=== PATIENT | male | born 2000 | race Two or more races ===

== ENCOUNTER 2023-11-17 18:10 | Observation (INO) | payer OTHER ==
--- NOTE | 2023-11-17 18:28 | ED ---
General Adult HPI - General Chief complaint: Weakness Stated complaint: heat exhaustion Time Seen by Provider: 11/17/23 18:15 Source: patient, EMS, RN notes reviewed, old records reviewed Mode of arrival: EMS - History of Present Illness Initial comments: This is a 23-year-old male who presents to the emergency department stating that he thinks he overheated himself outside today. Patient states it was over 90 degrees and he was on the beach playing volleyball and he was not drinking any fluids he became extremely hot and lightheaded he went to the water but it did not seem to resolve he came back out he just got worse so he decided to call the ambulance. EMS gave him a ride in an air conditioned [place] he stated that did help but he does feel better now but he still feels a little bit weak. Patient Denies any chest pain difficulty breathing shortness of breath. Patient has any abdominal pain patient has nausea vomit diarrhea. Patient denies headache patient has numbness weakness. Patient has any other medical problems. - Related Data Home Medications Medication Instructions Recorded Confirmed Acetaminophen Tab [Tylenol Tab] 1,000 mg PO Q6HR PRN 11/17/23 11/17/23 Ibuprofen [Motrin Ib] 400 mg PO Q6H PRN 11/17/23 11/17/23 Allergies Allergy/AdvReac Type Severity Reaction Status Date / Time No Known Allergies Allergy Verified 11/17/23 20:03 Review of Systems ROS Statement: Those systems with pertinent positive or pertinent negative responses have been documented in the HPI. ROS Other: All systems not noted in ROS Statement are negative. Past Medical History Past Medical History: No Reported History History of Any Multi-Drug Resistant Organisms: None Reported Past Surgical History: No Surgical Hx Reported Past Psychological History: No Psychological Hx Reported Smoking Status: Never smoker Past Alcohol Use History: None Reported Past Drug Use History: None Reported General Exam - General Exam Comments Initial Comments: GENERAL: Patient is well-developed and well-nourished. Patient is nontoxic and well- hydrated and is in mild distress. ENT: Neck is soft and supple. No significant lymphadenopathy is noted. Oropharynx is clear. Moist mucous membranes. Neck has full range of motion without eliciting any pain. EYES: The sclera were anicteric and conjunctiva were pink and moist. Extraocular movements were intact and pupils were equal round and reactive to light. Eyelids were unremarkable. PULMONARY: Unlabored respirations. Good breath sounds bilaterally. No audible rales rhonchi or wheezing was noted. CARDIOVASCULAR: There is a regular rate and rhythm without any murmurs gallops or rubs. ABDOMEN: Soft and nontender with normal bowel sounds. No palpable organomegaly was noted. There is no palpable pulsatile mass. SKIN: Skin is clear with no lesions or rashes and otherwise unremarkable. NEUROLOGIC: Patient is alert and oriented x3. Cranial nerves II through XII are grossly intact. Motor and sensory are also intact. Normal speech, volume and content. Symmetrical smile. MUSCULOSKELETAL: Normal extremities with adequate strength and full range of motion. LYMPHATICS: No significant lymphadenopathy is noted PSYCHIATRIC: Normal psychiatric evaluation. Course Vital Signs 11/17/23 11/17/23 18:14 20:42 Temperature 97.9 F 97.8 F Pulse Rate 86 71 Respiratory 16 16 Rate Blood Pressure 132/79 142/74 O2 Sat by Pulse 100 100 Oximetry Medical Decision Making - Medical Decision Making EKG is interpreted by myself. KG shows a sinus rhythm at 70 bpm parables 214 QRS is 90 QT interval 369 QTc is 389. Patient's EKG shows ST segment elevation with in 1 aVL and lead to as well as precordial leads V3, V4, V5 and V6. Patient also has some ST segment depression in aVR Was pt. sent in by a medical professional or institution ([facility], [facility], urgent care, hospital, or detention...) When possible be specific @ -[No] Did you speak to anyone other than the patient for history (EMS, parent, family, police, friend...)? What history was obtained from this source @ -[No] Did you review nursing and triage notes (agree or disagree)? Why? @ -[I reviewed and agree with nursing and triage notes] Were old charts reviewed (outside hosp., previous admission, EMS record, old EKG, old radiological studies, urgent care reports/EKG's, detention records)? Report findings @ -[No old charts were reviewed] Differential Diagnosis (chest pain, altered mental status, abdominal pain women, abdominal pain men, vaginal bleeding, weakness, fever, dyspnea, syncope, headache, dizziness, GI bleed, back pain, seizure, CVA, palpatations, mental health, musculoskeletal)? @ -Differential Dizziness: Benign paroxysmal positional Vertigo, Menieres disease, otitis media, dehydration, heat exhaustion acoustic neuroma, vertebrobasilar insufficiency, cerebellar stroke, encephalitis, hypovolemic, arrhythmia, coronary artery syndrome, anemia, this is not meant to be an all-inclusive list EKG interpreted by me (3pts min.). @ -[As above] X-rays interpreted by me (1pt min.). @ -[None done] CT interpreted by me (1pt min.). @ -[None done] U/S interpreted by me (1pt. min.). @ -[None done] What testing was considered but not performed or refused? (CT, X-rays, U/S, labs)? Why? @ -[None] What meds were considered but not given or refused? Why? @ -[None] Did you discuss the management of the patient with other professionals (professionals i.e. , PA, CLOTH BALER, lab, RT, psych nurse, social sciences instructor, apartment rental clerk, teacher, strategic debriefing officer, case managers)? Give summary @ -Spoke with Dr. Orozco about this case he came and saw the patient himself and had not echocardiogram done which she stated was normal. With patient [facility] they agreed to admit the patient with a consult with Dr. Orozco Was smoking cessation discussed for >3mins.? @ -[No] Was critical care preformed (if so, how long)? @ -[No] Were there social determinants of health that impacted care today? How? (Homelessness, low income, unemployed, alcoholism, drug addiction, transportation, low edu. Level, literacy, decrease access to med. care, longterm, rehab)? @ -[No] Was there de-escalation of care discussed even if they declined (Discuss DNR or withdrawal of care, Hospice)? DNR status @ -[No] What co-morbidities impacted this encounter? (DM, HTN, Smoking, COPD, CAD, Cancer, CVA, ARF, Chemo, Hep., AIDS, mental health diagnosis, sleep apnea, morbid obesity)? @ -[None] Was patient admitted / discharged? Hospital course, mention meds given and route, prescriptions, significant lab abnormalities, going to OR and other pertinent info. @ -Patient had lab work that was within normal range he was given a liter and half of fluid. Patient was feeling better but still little nauseated. Dr. Orozco saw the patient and had an echo done and the echo was normal but he wanted the patient to stay overnight to do repeat lab work. Undiagnosed new problem with uncertain prognosis? @ -[No] Drug Therapy requiring intensive monitoring for toxicity (Heparin, Nitro, Insulin, Cardizem)? @ -[No] Were any procedures done? @ -[No] Diagnosis/symptom? @ -Heat exhaustion Acute, or Chronic, or Acute on Chronic? @ -Acute Uncomplicated (without systemic symptoms) or Complicated (systemic symptoms)? @ -Complicated Side effects of treatment? @ -[No] Exacerbation, Progression, or Severe Exacerbation? @ -[No] Poses a threat to life or bodily function? How? (Chest pain, USA, DE, pneumonia, PE, COPD, DKA, ARF, appy, cholecystitis, CVA, Diverticulitis, Homicidal, Suicidal, threat to staff... and all critical care pts) @ -[No] Diagnosis/symptom? @ -Abnormal EKG Acute, or Chronic, or Acute on Chronic? @ -[default] Uncomplicated (without systemic symptoms) or Complicated (systemic symptoms)? @ -Acute complicated Side effects of treatment? @ -[none] Exacerbation, Progression, or Severe Exacerbation] @ -[no] Poses a threat to life or bodily function? @ -[no] - Lab Data Result diagrams: 11/17/23 18:44 11/17/23 18:44 Lab Results 11/17/23 11/17/23 11/17/23 Range/Units 18:44 18:44 19:04 WBC 11.3 H (3.8-10.6) k/uL RBC 5.24 (4.30-5.90) m/uL Hgb 14.6 (13.0-17.5) gm/dL Hct 46.1 (39.0-53.0) % MCV 87.9 (80.0-100.0) fL MCH 27.8 (25.0-35.0) pg MCHC 31.7 (31.0-37.0) g/dL RDW 12.9 (11.5-15.5) % Plt Count 274 (150-450) k/uL MPV 7.4 Neutrophils % 82 % Lymphocytes % 12 % Monocytes % 5 % Eosinophils % 0 % Basophils % 0 % Neutrophils # 9.3 H (1.3-7.7) k/uL Lymphocytes # 1.4 (1.0-4.8) k/uL Monocytes # 0.5 (0-1.0) k/uL Eosinophils # 0.1 (0-0.7) k/uL Basophils # 0.0 (0-0.2) k/uL Sodium 142 (137-145) mmol/L Potassium 3.8 (3.5-5.1) mmol/L Chloride 107 (98-107) mmol/L Carbon Dioxide 26 (22-30) mmol/L Anion Gap 9 mmol/L BUN 13 (9-20) mg/dL Creatinine 0.79 (0.66-1.25) mg/dL Est GFR (CKD-EPI)AfAm >90 (>60 ml/min/1.73 sqM) Est GFR (CKD-EPI)NonAf >90 (>60 ml/min/1.73 sqM) Glucose 94 (74-99) mg/dL Calcium 9.1 (8.4-10.2) mg/dL Magnesium 2.1 (1.6-2.3) mg/dL Total Bilirubin 0.5 (0.2-1.3) mg/dL AST 21 (17-59) U/L ALT 17 (4-49) U/L Alkaline Phosphatase 126 (38-126) U/L Troponin I 0.014 (0.000-0.034) ng/mL Total Protein 7.6 (6.3-8.2) g/dL Albumin 4.8 (3.5-5.0) g/dL Disposition Clinical Impression: Abnormal EKG, Heat exhaustion Disposition: ADMITTED IP TO THIS HOSP Time of Disposition: 20:46
[2023-11-17 18:50] LABS: Basophils % (A) 0 %; Eosinophils # (A) 0.1 k/uL (0-0.7); Eosinophils % (A) 0 %; HCT 46.1 % (39.0-53.0); HGB 14.6 gm/dL (13.0-17.5); Lymphocytes # (A) 1.4 k/uL (1.0-4.8); Lymphocytes % (A) 12 %; MCH 27.8 pg (25.0-35.0); MCHC 31.7 g/dL (31.0-37.0); MCV 87.9 fL (80.0-100.0); Mean Platelet Volume 7.4; Monocytes # (A) 0.5 k/uL (0-1.0); Monocytes % (A) 5 %; Neutrophils # (A) 9.3 k/uL (1.3-7.7); Neutrophils % (A) 82 %; Platelet Count 274 k/uL (150-450); RBC 5.24 m/uL (4.30-5.90); RDW 12.9 % (11.5-15.5); WBC 11.3 k/uL (3.8-10.6)
[2023-11-17] MEDS: SODIUM CHLORIDE 0.9% 500 ML 500 ML IV ONE (18:53)
[2023-11-17] MEDS: SODIUM CHLORIDE 0.9% 1,000 ML IV ONE ×2 (18:53→22:05)
[2023-11-17 19:00] LABS: ALT 17 U/L (4-49); AST 21 U/L (17-59); African American GFR (CKD) >90 (>60 ml/min/1.73 sqM); Albumin 4.8 g/dL (3.5-5.0); Alkaline Phosphatase 126 U/L (38-126); Anion Gap 9 mmol/L; Blood Urea Nitrogen 13 mg/dL (9-20); Calcium 9.1 mg/dL (8.4-10.2); Carbon Dioxide 26 mmol/L (22-30); Chloride 107 mmol/L (98-107); Glucose 94 mg/dL (74-99); Magnesium 2.1 mg/dL (1.6-2.3); Non-African American GFR(CKD) >90 (>60 ml/min/1.73 sqM); Potassium 3.8 mmol/L (3.5-5.1); Sodium 142 mmol/L (137-145); Total Bilirubin 0.5 mg/dL (0.2-1.3); Total Protein 7.6 g/dL (6.3-8.2)
[2023-11-17] MEDS: ONDANSETRON 4 MG/2 ML VIAL IVP STA (20:37)
[2023-11-17] MEDS: ACETAMINOPHEN TAB 500 MG TAB PO PRN (22:05)
--- NOTE | 2023-11-17 22:17 | P.CRDCN ---
History of Present Illness Consult date: 11/17/23 History of present illness: The patient is a pleasant 23-year-old gentleman with no significant past medical history presented to the emergency department feeling weak. He was in his usual state of health where he drove from [place] to be on the [place] here in [facility]. He spent a few hours on the [place] with his friends playing volleyball and after that he decided to go and swim in the [place]. Getting out of the water which according to him was very cold and the weather was very warm earlier, the patient felt weak and dizzy and lightheaded but he did not lose his consciousness nor have any symptoms of chest pain or chest discomfort or shortness of breath or any feeling of heart racing or fluttering. He decided to come to the emergency department after ambulance was called. He underwent further investigation including an EKG and that showed ST segment elevation about 1 mm which seems to be diffuse across all leads. Again the patient did not have any symptoms of chest pain or chest discomfort but he felt exhausted and weak and he did not lose his consciousness. Subsequently an echocardiogram was performed at bedside with myself in the room and the echo showed normal biventricular dimension and systolic function with no significant valvular ab normalities and no evidence of pericardial effusion. The patient reported no symptoms of any fever or chills or any contact with anybody sick with him earlier or within the last several days. No significant past medical history or surgical history and he stated that he does not smoke or drink alcohol or use illicit drug. Clearly he stated that he was outside in the warm weather with temperatures in the 90s for several hours and he did not drink enough water. The patient does have significant family history of his father had cardiac arrest in his 60s. Examination is remarkable for regular rhythm with clear breathing sounds bilaterally and no lower extremities edema in the abdomen soft and nontender Assessment Generalized weakness and fatigue Diffuse ST segment elevation could be secondary to early repolarization Possible heatstroke Plan The first set of troponin came in to be unremarkable Follow-up with the second set of troponin Monitor the patient for additional 24 hours Further recommendation to follow Past Medical History Past Medical History: No Reported History History of Any Multi-Drug Resistant Organisms: None Reported Past Surgical History: No Surgical Hx Reported Past Anesthesia/Blood Transfusion Reactions: No Reported Reaction Past Psychological History: No Psychological Hx Reported Smoking Status: Never smoker Past Alcohol Use History: None Reported Past Drug Use History: None Reported Medications and Allergies Home Medications Medication Instructions Recorded Confirmed Type Acetaminophen Tab [Tylenol Tab] 1,000 mg PO Q6HR PRN 11/17/23 11/17/23 History Ibuprofen [Motrin Ib] 400 mg PO Q6H PRN 11/17/23 11/17/23 History Allergies Allergy/AdvReac Type Severity Reaction Status Date / Time No Known Allergies Allergy Verified 11/17/23 20:03 Physical Exam Vitals: Vital Signs Temp Pulse Resp BP Pulse Ox 11/17/23 20:42 97.8 F 71 16 142/74 100 11/17/23 18:14 97.9 F 86 16 132/79 100 Intake and Output 11/17/23 11/17/23 11/17/23 06:59 14:59 22:59 Other: Weight 79.379 kg Results 11/17/23 18:44 11/17/23 18:44 Cardiac Enzymes 11/17/23 11/17/23 Range/Units 18:44 19:04 AST 21 (17-59) U/L Troponin I 0.014 (0.000-0.034) ng/mL CBC 11/17/23 Range/Units 18:44 WBC 11.3 H (3.8-10.6) k/uL RBC 5.24 (4.30-5.90) m/uL Hgb 14.6 (13.0-17.5) gm/dL Hct 46.1 (39.0-53.0) % Plt Count 274 (150-450) k/uL Comprehensive Metabolic Panel 11/17/23 Range/Units 18:44 Sodium 142 (137-145) mmol/L Potassium 3.8 (3.5-5.1) mmol/L Chloride 107 (98-107) mmol/L Carbon Dioxide 26 (22-30) mmol/L BUN 13 (9-20) mg/dL Creatinine 0.79 (0.66-1.25) mg/dL Glucose 94 (74-99) mg/dL Calcium 9.1 (8.4-10.2) mg/dL AST 21 (17-59) U/L ALT 17 (4-49) U/L Alkaline Phosphatase 126 (38-126) U/L Total Protein 7.6 (6.3-8.2) g/dL Albumin 4.8 (3.5-5.0) g/dL Current Medications Generic Name Dose Route Start Last Admin Trade Name Freq PRN Reason Stop Dose Admin Acetaminophen 1,000 mg 11/17/23 21:55 11/17/23 22:05 Acetaminophen Tab 500 Mg Tab PO 1,000 mg Q6HR PRN Administration Fever and/ or Pain Sodium Chloride 1,000 mls @ 75 mls/hr 11/17/23 20:46 11/17/23 22:05 Saline 0.9% IV 11/18/23 10:05 75 mls/hr .[id number] Administration Intake and Output 11/17/23 11/17/23 11/17/23 06:59 14:59 22:59 Other: Weight 79.379 kg Patient Weight 11/18/23 06:59 Weight 79.379 kg 11/17/23 18:44 11/17/23 18:44
--- NOTE | 2023-11-18 00:11 | P.HPIM ---
History of Present Illness H&P Date: 11/17/23 Patient is a 23-year-old male with no known PMH who had presented to the emergency room after an episode of lightheadedness with nausea and vomiting. The patient reports that he had been at the park with his friends where he played volleyball in the direct sun for roughly 45 minutes. He then went with his friends and jumped into a cold [place]pson where he swam with his friends for another 30 minutes. It was only after when he came out of the water that he felt lightheaded, weak, and nauseous. His symptoms improved quickly after EMS arrival and once he received IV fluids. He denies any prior history of such symptoms and notes that he is very active in his daily life. Patient denies experiencing chest discomfort, cough, fever, chills, diarrhea. Does report minimal oral intake over the hours of being outside in the sun. Notes feeling at his baseline at the time of interview. Denies any family history of congenital heart disease. Patient denies any recent sick contacts. EKG in the emergency room revealed sinus rhythm at 70 bpm with sinus arrhythmia and first-degree AV block with concave ST elevations diffusely. Laboratory evaluation revealed leukocytosis of 11.3, troponin 0.014, BUN 13, creatinine 0.79. ED documentation reviewed and case discussed with ED provider. Review of systems: Pertinent positives and negatives as discussed in HPI, a complete review of systems was performed and all other systems are negative. Physical examination: Vital signs reviewed General: non toxic, no distress, appears at stated age, normal weight Derm: no unusual rashes/lesions, warm Head: atraumatic, normocephalic, symmetric Eyes: EOMI, no lid lag, anicteric sclera, pupils equal round reactive to light ENT: Nose and ears atraumatic Neck: No cervical lymphadenopathy, trachea midline, supple Mouth: no lip lesion, mucus membranes moist Cardiovascular: S1S2 reg, no murmur, positive dorsalis pedis pulse bilateral, no edema Lungs: CTA bilateral, no rhonchi, no rales, no accessory muscle use Abdominal: soft, nontender to palpation, no guarding Ext: muscle strength 5 out of 5 in all 4 extremities grossly, no gross muscle atrophy, no contractures, Neuro: CN II-XI grossly intact, no gross focal neuro deficits Psych: Alert, oriented, appropriate affect Assessment: Lightheadedness and nausea with vomiting, suspicious for heat exhaustion Abnormal EKG Leukocytosis, likely secondary to acute stressor with no signs of active infection at this time Imaging: EKG in the emergency room revealed sinus rhythm at 70 bpm with sinus arrhythmia and first-degree AV block with concave ST elevations diffusely. Data Review: Laboratory evaluation revealed leukocytosis of 11.3, troponin 0.014, BUN 13, creatinine 0.79. Plan: Cardiology consulted Cardiac monitoring Trend troponin Continue with IV fluids normal saline 75 cc/h Obtain echocardiogram DVT prophylaxis: IPCDs The patient is admitted with an anticipated less than 2 midnight stay for evaluation of dizziness CODE STATUS: Full Code Discussed with: Patient Anticipated discharge place: Home Past Medical History Past Medical History: No Reported History History of Any Multi-Drug Resistant Organisms: None Reported Past Surgical History: No Surgical Hx Reported Past Anesthesia/Blood Transfusion Reactions: No Reported Reaction Past Psychological History: No Psychological Hx Reported Smoking Status: Never smoker Past Alcohol Use History: None Reported Past Drug Use History: None Reported - Past Family History Father Family Medical History: Chest Pain / Angina Medications and Allergies Home Medications Medication Instructions Recorded Confirmed Type Acetaminophen Tab [Tylenol Tab] 1,000 mg PO Q6HR PRN 11/17/23 11/17/23 History Ibuprofen [Motrin Ib] 400 mg PO Q6H PRN 11/17/23 11/17/23 History Allergies Allergy/AdvReac Type Severity Reaction Status Date / Time No Known Allergies Allergy Verified 11/17/23 20:03 Physical Exam Vitals: Vital Signs Temp Pulse Pulse Resp BP BP Pulse Ox 11/17/23 21:34 98.4 F 62 16 138/73 99 11/17/23 20:42 97.8 F 71 16 142/74 100 11/17/23 18:14 97.9 F 86 16 132/79 100 Intake and Output 11/17/23 11/17/23 11/18/23 14:59 22:59 06:59 Other: Voiding Method Toilet # Voids 1 Weight 79.379 kg Results CBC & Chem 7: 11/17/23 18:44 11/17/23 18:44 Labs: Abnormal Lab Results - Last 24 Hours (Table) 11/17/23 Range/Units 18:44 WBC 11.3 H (3.8-10.6) k/uL Neutrophils # 9.3 H (1.3-7.7) k/uL Thrombosis Risk Factor Assmnt - Choose All That Apply Any of the Below Risk Factors Present?: Yes Each Factor Represents 1 point: Obesity (BMI >25) Thrombosis Risk Factor Assessment Total Risk Factor Score: 1 Thrombosis Risk Factor Assessment Level: Low Risk
[2023-11-18] MEDS ORDERED: traMADol 50 MG TAB PO STA (04:13)
[2023-11-18 06:35] LABS: HCT 41.9 % (39.0-53.0); HGB 13.1 gm/dL (13.0-17.5); MCH 27.5 pg (25.0-35.0); MCHC 31.3 g/dL (31.0-37.0); MCV 87.8 fL (80.0-100.0); Mean Platelet Volume 7.5; Platelet Count 262 k/uL (150-450); RBC 4.77 m/uL (4.30-5.90); WBC 5.2 k/uL (3.8-10.6)
--- NOTE | 2023-11-18 07:54 | CA ---
Transthoracic Echo Report Name: Landen Brand Age: 23 Gender: M : 2000 Exam Date: 11/17/2023 19:34 Exam Location: [place] [facility] Ht (in): 70 Wt (lb): 175 Ordering Physician: Constantino Solorzano MD Attending/Referring Phys: Deputy Commissioner Letty Canales RDCS Procedure CPT: Indications: lightheadedness, dizziness Cardiac Hx: Technical Quality: Excellent Contrast 1: Total Dose (mL): Contrast 2: Total Dose (mL): MEASUREMENTS (Male / Female) Normal Values 2D ECHO LV Diastolic Diameter PLAX 5.3 cm 4.2 - 5.9 / 3.9 - 5.3 cm LV Systolic Diameter PLAX 3.4 cm IVS Diastolic Thickness 0.7 cm 0.6 - 1.0 / 0.6 - 0.9 cm LVPW Diastolic Thickness 0.9 cm 0.6 - 1.0 / 0.6 - 0.9 cm LV Relative Wall Thickness 0.3 RV Internal Dim ED PLAX 3.3 cm LVOT Diameter 2.2 cm LV Diastolic Volume MOD BP 192.1 cm??? 67 - 155 / 56 - 104 cm??? LV Systolic Volume MOD BP 58.7 cm??? 22 - 58 / 19 - 49 cm??? LV Ejection Fraction MOD BP 69.4 % >= 55 % LV Cardiac Index MOD BP 6170.6 cm???/min???m??? LV Diastolic Volume MOD 4C 181.3 cm??? LV Systolic Volume MOD 4C 60.3 cm??? LV Ejection Fraction MOD 4C 66.7 % LV Cardiac Index MOD 4C 5595.2 cm???/min???m??? LV Diastolic Length 4C 10.4 cm LV Systolic Length 4C 8.1 cm LV Diastolic Volume MOD 2C 203.4 cm??? LV Systolic Volume MOD 2C 58.7 cm??? LV Ejection Fraction MOD 2C 71.1 % LV Cardiac Index MOD 2C 6694.6 cm???/min???m??? LV Diastolic Length 2C 10.3 cm LV Systolic Length 2C 8.1 cm LA Volume 59.7 cm??? 18 - 58 / 22 - 52 cm??? LA Volume Index 30.0 cm???/m??? 16 - 28 cm???/m??? Ascending Aorta Diameter 2.8 cm DOPPLER AV Peak Velocity 170.1 cm/s AV Peak Gradient 11.6 mmHg AV Mean Velocity 101.6 cm/s AV Mean Gradient 4.9 mmHg AV Velocity Time Integral 29.0 cm LVOT Peak Velocity 123.4 cm/s LVOT Peak Gradient 6.1 mmHg LVOT Velocity Time Integral 21.4 cm LVOT Stroke Volume 80.6 cm??? LVOT Stroke Volume Index 40.9 ml/m??? LVOT Cardiac Index 3729.2 cm???/min???m??? AV Area Cont Eq vti 2.8 cm??? AV Area Cont Eq pk 2.7 cm??? PV Peak Velocity 119.4 cm/s PV Peak Gradient 5.7 mmHg FINDINGS Left Ventricle Left ventricular ejection fraction is estimated at 60-65 %. Moderately increased left ventricular diastolic volume. Left ventricular cavity size normal. Left ventricular wall thickness normal. No obvious regional wall motion abnormalities. Right Ventricle Normal right ventricular size and function. Unable to estimate the right ventricular systolic pressure. Right Atrium Normal right atrial size by visual. Left Atrium Mildly increased left atrial volume. Mitral Valve Structurally normal mitral valve. No evidence for mitral valve prolapse. No mitral stenosis. Trace mitral regurgitation. Aortic Valve Trileaflet aortic valve. No aortic valve stenosis or regurgitation. Tricuspid Valve Structurally normal tricuspid valve. No tricuspid stenosis. Trace tricuspid regurgitation. Pulmonic Valve Structurally normal pulmonic valve. No pulmonic stenosis. Trace pulmonic regurgitation. Pericardium No pericardial effusion. Aorta Normal size aortic root and proximal ascending aorta. CONCLUSIONS Current normal biventricular dimension and systolic function Normal intracardiac valves No evidence of pericardial effusion Previewed by: Dr. Brandon Orozco MD (Electronically Signed) Final Date: 18 November 2023 07:54
[2023-11-18 09:07] LABS: African American GFR (CKD) >90 (>60 ml/min/1.73 sqM); Anion Gap 6 mmol/L; Blood Urea Nitrogen 8 mg/dL (9-20); Calcium 9.3 mg/dL (8.4-10.2); Carbon Dioxide 27 mmol/L (22-30); Chloride 108 mmol/L (98-107); Glucose 98 mg/dL (74-99); Non-African American GFR(CKD) >90 (>60 ml/min/1.73 sqM); Potassium 4.3 mmol/L (3.5-5.1); Sodium 141 mmol/L (137-145)
[2023-11-18] MEDS: traMADol 50 MG TAB PO STA (09:08)
--- NOTE | 2023-11-18 10:18 | P.PN ---
Subjective HISTORY OF PRESENT ILLNESS: The patient is a pleasant 23-year-old gentleman with no significant past medical history presented to the emergency department feeling weak. He was in his usual state of health where he drove from [place] to be on the [place] here in [facility]. He spent a few hours on the [place] with his friends playing [employer] and after that he decided to go and swim in the [place]. Getting out of the water which according to him was very cold and the weather was very warm earlier, the patient felt weak and dizzy and lightheaded but he did not lose his consciousness nor have any symptoms of chest pain or chest discomfort or shortness of breath or any feeling of heart racing or fluttering. He decided to come to the emergency department after ambulance was called. He underwent further investigation including an EKG and that showed ST segment elevation about 1 mm which seems to be diffuse across all leads. Again the patient did not have any symptoms of chest pain or chest discomfort but he felt exhausted and weak and he did not lose his consciousness. Subsequently an echocardiogram was performed at bedside with myself in the room and the echo showed normal biventricular dimension and systolic function with no significant valvular abnormalities and no evidence of pericardial effusion. The patient reported no symptoms of any fever or chills or any contact with anybody sick with him earlier or within the last several days. No significant past medical history or surgical history and he stated that he does not smoke or drink alcohol or use illicit drug. Clearly he stated that he was outside in the warm weather with temperatures in the 90s for several hours and he did not drink enough water. The patient does have significant family history of his father had cardiac arrest in his 60s. Examination is remarkable for regular rhythm with clear breathing sounds bilaterally and no lower extremities edema in the abdomen soft and nontender 11/18/2023 Patient examined this morning at bedside. Patient denies any chest pain or pressure. He denies any shortness of breath. He states that he is feeling much better today. Vital signs are stable. Troponins are negative. PHYSICAL EXAM: VITAL SIGNS: Reviewed. GENERAL: Well-developed in no acute distress. NECK: Supple. No JVD or thyromegaly LUNGS: Respirations even and unlabored. Lungs essentially clear to auscultation bilaterally. HEART: Regular rate and rhythm. S1 and S2 heard. EXTREMITIES: Normal range of motion. No clubbing or cyanosis. Peripheral pulses intact. No lower extremity edema ASSESSMENT: Generalized weakness and fatigue Dizziness and lightheadedness/presyncope; possible heat exhaustion Abnormal EKG revealing diffuse ST elevation could be secondary to early repolarization Family history of CAD PLAN: 2D echo obtained and reviewed Patient to undergo stress testing this morning. If negative, he may be discharged home from a cardiac standpoint Further recommendations pending patient course Nurse practitioner note has been reviewed by physician. Signing provider agrees with the documented findings, assessment, and plan of care documented by INSTRUMENT AND ELECTRICAL TECHNICIAN as a scribe. Objective - Vital Signs Vital signs: Vital Signs Temp 98.1 F 11/18/23 07:00 Pulse 56 L 11/18/23 07:00 Resp 15 11/18/23 07:00 BP 117/67 11/18/23 07:00 Pulse Ox 99 11/18/23 07:00 FiO2 Intake & Output 11/17/23 11/18/23 11/18/23 18:59 06:59 18:59 Weight 79.379 kg 79.379 kg Other: Voiding Method Toilet # Voids 2 - Labs CBC & Chem 7: 11/18/23 06:14 11/18/23 08:36 Labs: Abnormal Lab Results - Last 24 Hours (Table) 11/17/23 11/18/23 Range/Units 18:44 08:36 WBC 11.3 H (3.8-10.6) k/uL Neutrophils # 9.3 H (1.3-7.7) k/uL Chloride 108 H (98-107) mmol/L BUN 8 L (9-20) mg/dL
--- NOTE | 2023-11-18 13:12 | CA ---
Exercise Stress Test Report Name: Landen Brand Exam Date: 11/18/2023 10:23 Exam Location: [place] Stress Ht (in): 70 Wt (lb): 175 BSA: 1.97 Ordering Phys: Padmini Diallo Referring Phys: PADMINI DIALLO Technologist: Charity Lanier RDCS Age: 23 Gender: M : 2000 Procedure CPT: Indications: dizzy, abnormal EKG ICD-10 Codes: Patient History: DIZZINESS, FAMILY HX OF HEART DISEASE Medications: Meds past 24 hrs: Pretest Chest Pain: STRESS TEST Alvaro Protocol Exercise Duration (min:sec): 11:[address] Depressions (mm): Angina Score: Jack Score: Resting HR (bpm): 66 Peak HR (bpm): 174 Resting BP (mmHg): 158 / 80 Peak BP (mmHg): 221 / 61 MPHR: 199 Target HR: 169 % MPHR: 87 METS: 12.1 Total Dose: Peak Dose: Atropine: Double Product: 34061 BP Response: Stress Termination: MAX EXERTION/TARGET HR Stress Symptoms: NO SYMPTOMS Stress Summary: ECG ANALYSIS Resting ECG: Stress ECG: CONCLUSIONS Excellent exercise tolerance Normal electrocardiogram stress testing Dr. Brandon Orozco MD (Electronically Signed) Final Date: 18 November 2023 13:10
--- NOTE | 2023-11-18 13:38 | P.DS ---
Providers Date of admission: 11/17/23 20:47 Expected date of discharge: 11/18/23 Attending physician: Riri Hamilton MD Primary care physician: Stated None Hospital Course: Discharge Diagnosis: Heat exhaustion Abnormal EKG. EKG showing diffuse ST segment elevation in leads I, II, aVL, aVF, and leads V3 through V6. Believed to be secondary to early repolarization. Echocardiogram completed showing preserved EF of 60 to 65% with no significant valvular or structural abnormalities and no evidence of pericardial effusion. Troponins were negative at 0.014 and less than 0.012. Patient was evaluated by cardiology and taken for cardiac stress test which revealed excellent exercise tolerance and normal EKG stress testing. Patient cleared from cardiac perspective for discharge recommending outpatient follow-up in 2 weeks. Hospital Course: Patient is a pleasant 23-year-old male with no reported past medical history. He presented to the hospital on 11/17/2023 for chief complaint of weakness and dizziness. Patient was reportedly feeling at his baseline normal and [place] and playing volleyball with friends he began feeling dizzy/lightheadedness with overall fatigue/weakness so they called for an ambulance to transport to the emergency department. Upon arrival to our facility patient underwent evaluation in the emergency department.. Vital signs upon arrival show blood pressure 132/79, heart rate 86, respiratory rate 16, temp 97.9 F, and SpO2 of 100% on room air. EKG showing diffuse ST segment elevation in leads I, II, aVL, aVF, and leads V3 through V6. Labs were completed and reviewed. CBC showing WBC count of 11.3. CMP was unremarkable. Blood glucose was 94. Troponin was 0.014. Patient was admitted under our services with consultation to cardiology. Echocardiogram completed showing preserved EF of 60 to 65% with no significant valvular or structural abnormalities and no evidence of pericardial effusion. Troponins were negative at 0.014 and less than 0.012. Repeat EKG was completed showing sinus bradycardia at 45 bpm with a first-degree AV block with MN interval of 274 ms. Patient reports feeling significantly better status post aggressive IV fluid hydration. He was evaluated by cardiology and taken for cardiac stress test which revealed excellent exercise tolerance and normal EKG stress testing. Patient cleared from cardiac perspective for discharge recommending outpatient follow-up in 2 weeks. Physical Exam: Patient seen and examined at bedside. Vital signs reviewed and stable. General: Nontoxic, no distress and appears stated age. Derm: Skin warm and dry, normal coloration for ethnicity. Head: Atraumatic, normocephalic and symmetric. Eyes: EOMs intact, no lid lag, and anicteric sclera Mouth: no lip lesions, mucus membranes moist Cardiovascular: regular rate and rhythm with normal S1S2, no murmur, positive posterior tibial pulses bilaterally, and cap refill < 2 seconds. Lungs: Respirations even, regular, and unlabored on room air. Lungs CTA bilaterally, no rhonchi, no rales, no wheezing, and no accessory muscle usage. Abdominal: soft, nontender to palpation, no guarding, no appreciable organomegaly Ext: ROM intact. No gross muscle atrophy, no edema, no contractures Neuro: Speech clear, face symmetrical and CN II-XII grossly intact with no noted focal neuro deficits Psych: Alert and oriented to person, place, time, and situation. Appropriate and pleasant affect. A total of 31 minutes of time were spent preparing this complex discharge summary. Pt was discharged on 11/18/23 at 1:36 PM. Patient was seen independently by Nurse Practitioner. This document was prepared using [employer] dictation software. Please allow for errors in dietist while rare they do occur. Patient Condition at Discharge: Stable Plan - Discharge Summary New Discharge Prescriptions: Continue Acetaminophen Tab [Tylenol] 1,000 mg PO Q6HR PRN PRN Reason: Fever And/ Or Pain Ibuprofen [Motrin Ib] 400 mg PO Q6H PRN PRN Reason: Fever And/ Or Pain Discharge Medication List Acetaminophen Tab [Tylenol] 1,000 mg PO Q6HR PRN 11/17/23 [History] Ibuprofen [Motrin Ib] 400 mg PO Q6H PRN 11/17/23 [History] Follow up Appointment(s)/Referral(s): Brandon Orozco MD [STAFF PHYSICIAN] - 1 Week Atiya Adan MD [REFERRING] - 1 Week (Please call and schedule outpatient follow- up) Patient Instructions/Handouts: Heat Exhaustion (GEN) Activity/Diet/Wound Care/Special Instructions: Activity: As tolerated. Take breaks as needed. Diet: Regular diet, remember to stay hydrated especially when out in the sun. Special Instructions: Thank you for allowing us to participate in your care, it was truly a pleasure having you for our patient!!! . Discharge Disposition: HOME SELF-CARE
[2023-11-18 14:07] VITALS: BP 127/73; PULSE 58; RESP 16; TEMP 97.4
== END 2023-11-18 14:10 | disposition home or self-care (01) ==
LOC: EC 18:10 → 6NMEDSUR 20:47
PROVIDERS: ADMIT Internal Medicine; ATTEND Internal Medicine
DX: T67.5XXA Heat exhaustion, unspecified, initial encounter (principal); I44.0 Atrioventricular block, first degree; R00.1 Bradycardia, unspecified; D72.829 Elevated white blood cell count, unspecified; X30.XXXA Exposure to excessive natural heat, initial encounter; Y93.68 Activity, volleyball (beach) (court); Y92.838 Other recreation area as the place of occurrence of the external cause; Z82.49 Family history of ischemic heart disease and other diseases of the circulatory system
CPT/HCPCS: 96361; 96374; 99285; 36415; 93005; 93017; 93306; 80053; 80048; 83735 ×2; 84484; 85025; 85027; G0378 ×2; J2405